=== PATIENT | female | born 2000 | race Caucasian/White ===

== ENCOUNTER 2020-01-15 22:41 | Inpatient (IN) | payer BC ==
--- NOTE | 2020-01-15 22:57 | ED ---
Medical Screening - History of Current Complaint Chief Complaint: EDMentalHealth Stated Complaint: 941 PER EMS Time Seen by Provider: 01/15/20 22:55 PMH/Surg Hx/FS Hx/Imm Hx Infectious Disease History: No Infectious Disease History: Denies: Traveled Outside the [place] in Last 30 Days Physical Exam Vital Signs On Initial Exam: Initial Vitals Temp Pulse Resp BP Pulse Ox 98.3 F 102 16 120/77 99 01/15/20 22:41 01/15/20 22:41 01/15/20 22:41 01/15/20 22:41 01/15/20 22:41 Diagnostics - Vital Signs Vital Signs Temp Pulse Resp BP Pulse Ox 01/15/20 22:41 98.3 F 102 16 120/77 99 - Laboratory Lab Statement: Any lab studies that have been ordered have been reviewed, and results considered in the medical decision making process.
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
[2020-01-15 23:30] LABS: ABS Eosinophils 0.2 10^3/ul (0-0.6); ABS Lymphocytes 1.8 10^3/ul (1.0-4.8); ABS Monocytes 0.6 10^3/ul (0-0.8); ABS Neutrophils 8.4 10^3/ul (1.5-7.7); Eosinophil % 1.6 %; Hematocrit 41 % (35-47); Hemoglobin 14.4 g/dL (12.0-16.0); Lymphocyte % 16.3 %; Mean Corpuscular HGB Conc 35 g/dL (31-36); Mean Corpuscular Hemoglobin 31 pg (27-31); Mean Corpuscular Volume 89 fL (80-97); Nucleated Red Blood Cells % 0.2; Platelet Count 215 10^3/uL (150-450); Red Blood Count 4.62 10^6 /uL (3.70-4.87); Red Cell Distribution Width 14 % (10-15)
[2020-01-15 23:31] LABS: Urine Appearance Clear; Urine Bilirubin Negative (Negative); Urine Blood Negative (Negative); Urine Color Yellow; Urine Glucose Negative (Negative); Urine Ketones Trace (Negative); Urine Nitrite Negative (Negative); Urine Protein Negative (Negative); Urine Specific Gravity 1.024 (1.010-1.030); Urine Urobilinogen Negative (Negative)
[2020-01-15 23:47] LABS: Urine Benzodiazepine Screen None Detected (None Detect); Urine Opiates Screen None Detected (None Detect)
[2020-01-15 23:47] LABS: ALT 16 U/L (7-52); Albumin 4.2 g/dL (3.2-5.2); Albumin/Globulin Ratio 1.6 (1-3); Alkaline Phosphatase 89 U/L (34-104); BUN/Creatinine Ratio 23.4 (8-20); Blood Urea Nitrogen 22 mg/dL (6-24); CO2 Carbon Dioxide 22 mmol/L (22-32); Calcium 9.3 mg/dL (8.6-10.3); Chloride 108 mmol/L (101-111); EGFR African American 92.8 (>60); EGFR Non-African American 76.7 (>60); Globulin 2.7 g/dL (2-4); Glucose 88 mg/dL (70-100); Sodium 139 mmol/L (135-145); Total Protein 6.9 g/dL (6.4-8.9)
[2020-01-16] MEDS ORDERED: Acetaminophen TAB* 325 MG PO PRN
[2020-01-16] MEDS ORDERED: Al Hydrox/Mg Hydrox/Simet LIQ* 30 ML UDC PO PRN
[2020-01-16 00:11] LABS: Anion Gap 9 mmol/L (2-11); Potassium 4.1 mmol/L (3.5-5.0)
[2020-01-16 00:23] LABS: Acetaminophen < 15 mcg/mL; Alcohol < 10 mg/dL (<10); Salicylate < 2.50 mg/dL (<30)
[2020-01-16 00:31] LABS: TSH (Thyroid Stimulating Horm) 1.35 mcIU/mL (0.34-5.60)
[2020-01-16 02:05] LABS: AST 23 U/L (13-39)
[2020-01-16] MEDS ORDERED: FLUoxetine CAP* 10 MG PO SCH (09:00)
[2020-01-16] MEDS: Vitamin THERAPEUTIC TAB PO SCH (09:47)
[2020-01-16] MEDS: Escitalopram * 5 MG TAB PO SCH (14:08)
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
[2020-01-17 08:08] LABS: Cholesterol 157 mg/dL; HDL Cholesterol 71.6 mg/dL; LDL Cholesterol 72 mg/dL; Triglycerides 68 mg/dL
[2020-01-17 08:37] LABS: HCG Pregnancy < 0.60 mIU/mL
[2020-01-17 08:43] VITALS: BP 118/56
[2020-01-17] MEDS: Escitalopram * 5 MG TAB PO SCH (08:47)
[2020-01-17] MEDS: Vitamin THERAPEUTIC TAB PO SCH (08:47)
[2020-01-17] MEDS ORDERED: Escitalopram * 5 MG TAB PO ONE (11:39)
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
== END 2020-01-17 13:30 | disposition home or self-care (01) | DRG 751 ==
LOC: ED 22:41 → BSU 01-16 03:39 → ED 01-16 03:48
PROVIDERS: ADMIT Psychiatry & Neurology Psychiatry; ATTEND Psychiatry & Neurology Psychiatry
DX: F33.1 Major depressive disorder, recurrent, moderate (principal); F50.2 Bulimia nervosa; R45.851 Suicidal ideations; Z62.810 Personal history of physical and sexual abuse in childhood; Z81.8 Family history of other mental and behavioral disorders
CPT/HCPCS: 36415; 80053; 80061; 80307; 80320; 80329; 81003; 83036; 84443; 84702; 85025; 99222; 99238; 99284; A9270-GY; G0480